=== PATIENT | female | born 1965 ===

== ENCOUNTER → 2018-09-19 20:25 | Outpatient (REF) | payer OTHER, SELFPAY ==
[2018-09-19 21:54] LABS: Free T3, Triiodothyronine Free 4.07 pg/mL (2.77-5.27); Free T4, Direct Thyroxine 1.68 ng/dL (0.78-2.19)
[2018-09-19 22:10] LABS: Ferritin 33.4 ng/mL (11.1-264)
[2018-09-22 07:54] LABS: Progesterone < 0.5 ng/mL
[2018-09-23 09:45] LABS: Estrogen 155.1 pg/mL
[2018-09-23 21:47] LABS: Testosterone, Total 19.9
== END ==
LOC: LAB 20:25
PROVIDERS: Visit Provider Naturopath
DX: N95.1 Menopausal and female climacteric states (principal); Z79.890 Hormone replacement therapy; E06.3 Autoimmune thyroiditis; F32.1 Major depressive disorder, single episode, moderate; E61.1 Iron deficiency; N94.10 Unspecified dyspareunia; B00.89 Other herpesviral infection
CPT/HCPCS: 36415; 82672; 82728; 84144; 84402; 84403; 84439; 84443; 84481

== ENCOUNTER → 2018-10-30 20:56 | Outpatient (REF) | payer OTHER, SELFPAY ==
[2018-10-30 21:47] LABS: Add Manual Diff / Slide Review NO; Basophils Absolute Auto 0 /uL (0-100); Basophils Percent Auto 1.7 % (0-2); Eosinophils Absolute Auto 0 /uL (0-450); Eosinophils Percent Auto 1.7 % (2-4); Hematocrit 43.1 % (36-46); Hemoglobin 14.3 g/dL (12.0-16.0); Lymphocytes Absolute Auto 1000 /uL (1100-4500); Mean Corpuscular HGB Conc 33.2 % (30-36); Mean Corpuscular Hemoglobin 32.6 PG (26-34); Mean Corpuscular Volume 98.3 fL (80-100); Monocytes Absolute Auto 200 /uL (0-900); Monocytes Percent Auto 9.1 % (3-14); Neutrophils Absolute Auto 800 /uL (1500-7000); Neutrophils Percent Auto 40.5 % (50-75); Platelet Count 224 X10^3/uL (150-400); Red Blood Cell Count 4.39 X10^6/uL (4.0-5.2); Red Cell Distribution Width 13.4 % (11.6-14.8)
[2018-10-30 22:06] LABS: Alanine Aminotransferase 26 IU/L (9-52); Albumin 4.6 g/dL (3.5-5.0); Albumin Globulin Ratio 1.6 (1.0-2.8); Alkaline Phosphatase 60 U/L (38-126); Aspartate Aminotransferase 31 IU/L (14-36); BUN Creatinine Ratio 18.6 (6-22); Bilirubin Total 0.6 mg/dL (0.2-1.3); Blood Urea Nitrogen 13 mg/dL (7-17); Calcium 9.9 mg/dL (8.4-10.2); Carbon Dioxide 31 mmol/L (22-32); Chloride 101 mmol/L (98-107); Estimated Glomerular Filt Rate > 60.0 mL/min (>60); Globulin 2.8 g/dL (1.7-4.1); Glucose 81 mg/dL (70-100); HEMOLYSIS < 15 (0-50); Lipase 58 U/L (23-300); Potassium 4.1 mmol/L (3.4-5.1); Sodium 139 mmol/L (137-145); Total Protein 7.4 g/dL (6.3-8.2)
== END ==
LOC: LAB 20:56
PROVIDERS: Visit Provider Physician Assistant
DX: K59.00 Constipation, unspecified (principal); R10.30 Lower abdominal pain, unspecified
CPT/HCPCS: 36415; 80053; 83690; 85025